=== PATIENT | female | born 1955 | race African-American/Black ===

== ENCOUNTER 2016-08-12 16:38 | Emergency (ER) | payer OTHER ==
[~2016-08-12 16:38] MED LIST: ENAL10TA7 PO; HYDR12.56 PO; SIMV10TA PO
[2016-08-12 16:42] VITALS: BP 133/72; PULSE 94; RESP 12; TEMP 98.8; O2SAT 96
[2016-08-12] MEDS ORDERED: TETANUS/DIPHTHERIA TOXOID ADULT 0.5 ML VIAL IM ONE (17:45)
--- NOTE | 2016-08-12 17:48 | PD ---
HPI Chief Complaint: Laceration/Skin Injury Time Seen by Provider: 17:43 Travel History International Travel<30 days: No Contact w/Intl Traveler<30days: No Traveled to known affect area: No History of Present Illness HPI Patient comes in for evaluation of a left index finger laceration occurred shortly prior to arrival. Patient states she was cutting up potatoes to make hash when she accidentally cut Her Left Index Finger by the Nail and Was Concerned about the Bleeding. Patient Denies Being on Any Blood Thinners or Pain with This. Patient States She Washed It, Put on Neosporin, and Applied a Band-Aid. She states her tetanus shot is not up-to-date. [facility] Past Medical History Cerebral Palsy: Yes Diminished Hearing: No Hypertension: Yes Past Surgical History Other Surgery: Yes (myeloectomy/ right breast surgery) Social History Alcohol Use: Yes (occassionally ) Tobacco Use: No Substance Use: No Allergies-Medications (Allergen,Severity, Reaction): Coded Allergies: No Known Allergies (Verified , 08/12/16) Reported Meds & Prescriptions Reported Meds & Active Scripts Active Review of Systems Except as stated in HPI: all other systems reviewed are Neg Physical Exam Narrative GENERAL: Well-developed, well nourished, in no acute distress, and non-ill appearing. SKIN: Warm and dry. Small (less than half a centimeter) superficial nonrepairable laceration noted on the lateral aspect of the right index finger next to the nail without involvement of the nailbed. There is no foreign body. It is not actively bleeding. It is nontender and afebrile. HEAD: Atraumatic. Normocephalic. EYES: Pupils equal and round. EOMI. No scleral icterus. No injection or drainage. ENT: No nasal bleeding or discharge. Mucous membranes pink and moist. NECK: Trachea midline. Supple. No nuclear rigidity. CARDIOVASCULAR: Capillary refill less than 2 seconds. RESPIRATORY: No accessory muscle use. No respiratory distress. MUSCULOSKELETAL: No obvious deformities. No clubbing. No cyanosis. No edema. Full range of motion. NEUROLOGICAL: Awake and alert. No obvious cranial nerve deficits. Motor grossly within normal limits. Normal speech. PSYCHIATRIC: Appropriate mood and affect; insight and judgment normal. Data Data Last Documented VS Vital Signs Date Time Temp Pulse Resp B/P Pulse Ox O2 Delivery O2 Flow Rate FiO2 08/12/16 16:42 98.8 94 12 133/72 96 Room Air Orders Wound Care (08/12/16 17:40) Tetanus/Diphtheria Tox Adult (Tetanus/Di (08/12/16 17:45) MDM Medical Decision Making Medical Screen Exam Complete: Yes Emergency Medical Condition: Yes Differential Diagnosis Laceration, abrasion, contusion, other Narrative Course The wound is very superficial and nonrepairable. There was no sign of infection at this time. There was no evidence to suggest foreign bodies. Visual and tactile exams were unremarkable. There was no evidence of neurovascular injury as well. The patients wounds were cleaned and dressed. The patient was given signs and symptom warnings for infection, such as increasing pain, redness, swelling, associated heat, pus or fever. The patient was given instructions for timely follow up. The patient agreed with plan of care. Patient in no obvious distress upon re-evaluation. Any questions/concerns in reference to patient diagnosis/condition discussed and clarified prior to patient's discharge. Reinforced sheer importance of close follow up with patient 's primary physician or primary care clinic. Instructed patient to return to ED immediately, if symptoms return/worsen. Pt showed understanding of above instructions. Further instructions and recommendations were detailed in discharge paperwork. Pt ambulated without difficulty out of ED at discharge. Diagnosis Primary Impression: Finger laceration Qualified Code: S61.219A - Finger laceration, initial encounter Patient Instructions: Finger Laceration (ED), General Instructions Additional Instructions: Follow-up with your primary care physician this week for reevaluation. Keep wound dry and clean as possible using soap and water. Use Neosporin to promote healing. Return to the emergency department if symptoms get worse. Disposition: 01 DISCHARGE HOME Condition: Stable Igor Cantu Aug 12, 2016 17:48
== END 2016-08-12 18:11 | disposition home or self-care (01) ==
LOC: NEPB 16:38
DX: S61.211A Laceration without foreign body of left index finger without damage to nail, initial encounter (principal); W45.8XXA Other foreign body or object entering through skin, initial encounter; Y93.G1 Activity, food preparation and clean up; Z23 Encounter for immunization
CPT/HCPCS: 90471; 90714

== ENCOUNTER 2017-02-13 01:03 | Observation (INO) | payer OTHER ==
[2017-02-13 01:11] VITALS: BP 169/76; PULSE 76; RESP 16; TEMP 98.4; O2SAT 99
[2017-02-13 02:13] VITALS: BP 166/80; PULSE 83; RESP 16; O2SAT 96
[2017-02-13] MEDS ORDERED: NITROGLYCERIN 2% OINT 1 GM PACKET TOPICAL ONE (02:15)
[2017-02-13] MEDS ORDERED: SODIUM CHLORIDE 0.9% FLUSH 10 ML FLUSH IVF PRN (02:15)
[2017-02-13] MEDS ORDERED: OMEP20CA2 (02:17)
[2017-02-13] MEDS ORDERED: SIMV20TA PO (02:17)
[2017-02-13] MEDS ORDERED: ENAL20TA PO (02:17)
[2017-02-13] MEDS ORDERED: AMLO5TAB2 PO (02:17)
--- NOTE | 2017-02-13 02:30 | RADRPT ---
EXAM DATE/TIME: 02/13/2017 02:20 [facility] COMPARISON: No previous studies available for comparison. INDICATIONS : Chest pain. MEDICAL HISTORY : None. SURGICAL HISTORY : Mastectomy, right. ENCOUNTER: Initial ACUITY: 1 day PAIN SCORE: 2/10 LOCATION: Bilateral upper chest posterior to anterior FINDINGS: A single view of the chest demonstrates the lungs to be symmetrically aerated without evidence of mas s, infiltrate or effusion. The cardiomediastinal contours are unremarkable. Osseous structures are intact. CONCLUSION: No acute disease. Migue Garzon MD on February 13, 2017 at 2:28 Board Certified Radiologist. This report was verified electronically.
[2017-02-13 03:12] LABS: AUTOMATED NEUTROPHIL # 3.5 TH/MM3 (1.8-7.7); BASOPHIL # 0.1 TH/MM3 (0-0.2); BASOPHIL % 1.1 % (0.0-2.0); EOSINOPHIL # 0.1 TH/MM3 (0-0.4); EOSINOPHIL % 2.2 % (0.0-4.0); HEMATOCRIT 37.8 % (35.0-46.0); HEMO FLAGS DIFF FINAL; LYMPH % 31.6 % (9.0-44.0); MEAN CELL VOLUME 80.4 FL (80.0-100.0); MEAN CORPUSCULAR HEMOGLOBIN 27.7 PG (27.0-34.0); MEAN CORPUSCULAR HGB CONC 34.4 % (32.0-36.0); MONO % 10.6 % (0.0-8.0); NEUT % 54.5 % (16.0-70.0); PLATELET COUNT 232 TH/MM3 (150-450); RED BLOOD COUNT 4.69 MIL/MM3 (4.00-5.30); RED CELL DISTRIBUTION WIDTH 14.6 % (11.6-17.2); WHITE BLOOD COUNT 6.4 TH/MM3 (4.0-11.0)
[2017-02-13 03:31] LABS: ALT (GPT) 21 U/L (10-53); ANION GAP 7 MEQ/L (5-15); AST (GOT) 12 U/L (15-37); BICARBONATE 26.7 MEQ/L (21.0-32.0); BLOOD UREA NITROGEN 20 MG/DL (7-18); CHLORIDE 106 MEQ/L (98-107); GLOMERULAR FILTRATION RATE 49 ML/MIN (>89); SODIUM (NA) 140 MEQ/L (136-145)
[2017-02-13 03:35] LABS: ALKALINE PHOSPHATASE 126 U/L (45-117); TOTAL BILIRUBIN ADULT 0.4 MG/DL (0.2-1.0)
[2017-02-13] MEDS ORDERED: IOHEXOL 350 MG/ML 10 ML VIAL (for RAD DIAG) IV ONE (04:25)
--- NOTE | 2017-02-13 04:46 | RADRPT ---
EXAM DATE/TIME: 02/13/2017 04:07 [facility] COMPARISON: CHEST SINGLE AP, February 13, 2017, 2:20. INDICATIONS : Chest pain that radiates to upper back. IV CONTRAST: 100 cc Omnipaque 350 (iohexol) IV RADIATION DOSE: 10.74 CTDIvol (mGy) MEDICAL HISTORY : Hypertension. Cerebal palsy. SURGICAL HISTORY : None. ENCOUNTER: Initial ACUITY: 1 day PAIN SCALE: 5/10 LOCATION: Bilateral chest TECHNIQUE: Volumetric scanning was performed using a multi-row detector CT scanner. The data was post processed with a variety of visualization algorithms including full volume maximum intensity projection, multi -planar sliding thin slab reformation, curved planar reformation, and surface rendering techniques. Using automated exposure control and adjustment of the mA and/or kV according to patient size, radiat ion dose was kept as low as reasonably achievable to obtain optimal diagnostic quality images. DICOM format image data is available electronically for review and comparison. FINDINGS: There is a tiny nodule in the left lower lobe superiorly measuring 2.5 mm on image 38. A small air cy st in the left upper lobe is present as well as the right upper lobe measuring up to 1.8 cm. No evide nce of pneumonia. There is no aneurysm. No evidence for aortic dissection. Urinary bladder, uterus, o varies, kidneys, spleen, pancreas, liver, gallbladder, adrenal glands are unremarkable. There is a sm all hiatal hernia. Appendix normal. No adenopathy or aneurysm. CONCLUSION: 1. No evidence for aortic dissection. Migue Garzon MD on February 13, 2017 at 4:42 Board Certified Radiologist. This report was verified electronically.
[2017-02-13] MEDS ORDERED: SODIUM CHLOR 0.9% 1000 ML INJ 1,000 ML IV SCH (05:00)
[2017-02-13] MEDS ORDERED: SODIUM CHLORIDE 0.9% FLUSH 10 ML FLUSH IV FLUSH PRN (05:00)
[2017-02-13] MEDS ORDERED: ASPIRIN 81 MG CHEW TAB CHEW ONE (05:00)
[2017-02-13 05:15] VITALS: BP 152/79; PULSE 78; RESP 18; O2SAT 100
[2017-02-13 05:16] VITALS: O2SAT 99
--- NOTE | 2017-02-13 06:00 | PD ---
HPI Chief Complaint: Pain: Acute or Chronic Time Seen by Provider: 02:01 Travel History International Travel<30 days: No Contact w/Intl Traveler<30days: No Traveled to known affect area: No History of Present Illness HPI This is a 61-year-old female who has a history of hypertension and hyperlipidemia who presents to the emergency department with chest discomfort that started one hour ago. She describes the pain as a stabbing pain between her shoulder blades that radiates up to her chest, constant, moderate severity. She denies any associated shortness of breath, diaphoresis or nausea. She's had this chest pain in the past. She says she told her refrigeration specialist Dr. Dunaway about it and he said if it ever happened again she should come to the emergency department. [facility] Past Medical History Cerebral Palsy: Yes Diminished Hearing: No Hypertension: Yes Past Surgical History Other Surgery: Yes (myeloectomy/ right breast surgery) Social History Alcohol Use: Yes (occassionally ) Tobacco Use: No Substance Use: No Allergies-Medications (Allergen,Severity, Reaction): Coded Allergies: No Known Allergies (Verified , 08/12/16) Reported Meds & Prescriptions Reported Meds & Active Scripts Active Reported Omeprazole 20 Mg Cap Amlodipine (Amlodipine Besylate) 5 Mg Tab 5 Mg PO DAILY Simvastatin 20 Mg Tab 20 Mg PO DAILY Enalapril (Enalapril Maleate) 20 Mg Tab 20 Mg PO DAILY Review of Systems Except as stated in HPI: all other systems reviewed are Neg Physical Exam Narrative GENERAL:Well appearing, no acute distress SKIN: Focused skin assessment warm and dry. HEAD: Atraumatic. Normocephalic. EYES: Pupils equal and round. No injection or drainage. ENT: Moist mucous membranes NECK: Trachea midline. CARDIOVASCULAR: Regular rate and rhythm. No murmur appreciated. RESPIRATORY: Clear to auscultation. Breath sounds equal bilaterally. GASTROINTESTINAL: Abdomen soft, non-tender, nondistended. MUSCULOSKELETAL: No obvious deformities. NEUROLOGICAL: Awake and alert. No obvious cranial nerve deficits. Moving all extremities. PSYCHIATRIC: Appropriate mood and affect; insight and judgment normal. Data Data Last Documented VS Vital Signs Date Time Temp Pulse Resp B/P Pulse Ox O2 Delivery O2 Flow Rate FiO2 02/13/17 02:13 83 16 166/80 96 02/13/17 01:11 98.4 Room Air Orders Electrocardiogram (02/13/17 02:07) Complete Blood Count With Diff (02/13/17 02:07) Comprehensive Metabolic Panel (02/13/17 02:07) Troponin I (02/13/17 02:07) Chest, Single Ap (02/13/17 02:07) Ecg Monitoring (02/13/17 02:07) Bilateral Bp Monitoring (02/13/17 02:07) Iv Access Insert/Monitor (02/13/17 02:07) Oximetry (02/13/17 02:07) Oxygen Administration (02/13/17 02:07) Sodium Chloride 0.9% Flush (Ns Flush) (02/13/17 02:15) Cta Thor Abd Aorta W Iv C W3d (02/13/17 02:07) Nitroglycerin 2% Oint (Nitroglycerin 2% (02/13/17 02:15) Iohexol 350 Inj (Omnipaque 350 Inj) (02/13/17 04:25) Sodium Chlor 0.9% 1000 Ml Inj (Ns 1000 M (02/13/17 05:00) Activity Bed Rest With Brp (02/13/17 04:55) Vital Signs (Adult) Q4H (02/13/17 04:55) Cardiac Rhythm .As Directed (02/13/17 04:55) Notify Dr: Other .PRN (02/13/17 04:55) Notify Parameters (02/13/17 04:55) Resp Oxygen Nasal Cannula (02/13/17 ) Troponin I (02/13/17 04:55) Troponin I (02/13/17 07:55) Electrocardiogram (02/13/17 04:55) Electrocardiogram (02/13/17 07:55) ^ Obtain (02/13/17 04:55) Sodium Chloride 0.9% Flush (Ns Flush) (02/13/17 05:00) Sodium Chloride 0.9% Flush (Ns Flush) (02/13/17 09:00) Telecom Sales Consultant / Telemetry [email or web address] (02/13/17 04:55) Aspirin Chew (Aspirin Chew) (02/13/17 05:00) Admit Order (Ed Use Only) (02/13/17 04:55) Labs Laboratory Tests Test 02/13/17 02:12 White Blood Count 6.4 TH/MM3 Red Blood Count 4.69 MIL/MM3 Hemoglobin 13.0 GM/DL Hematocrit 37.8 % Mean Corpuscular Volume 80.4 FL Mean Corpuscular Hemoglobin 27.7 PG Mean Corpuscular Hemoglobin 34.4 % Concent Red Cell Distribution Width 14.6 % Platelet Count 232 TH/MM3 Mean Platelet Volume 9.5 FL Neutrophils (%) (Auto) 54.5 % Lymphocytes (%) (Auto) 31.6 % Monocytes (%) (Auto) 10.6 % Eosinophils (%) (Auto) 2.2 % Basophils (%) (Auto) 1.1 % Neutrophils # (Auto) 3.5 TH/MM3 Lymphocytes # (Auto) 2.0 TH/MM3 Monocytes # (Auto) 0.7 TH/MM3 Eosinophils # (Auto) 0.1 TH/MM3 Basophils # (Auto) 0.1 TH/MM3 CBC Comment DIFF FINAL Differential Comment Sodium Level 140 MEQ/L Potassium Level 4.0 MEQ/L Chloride Level 106 MEQ/L Carbon Dioxide Level 26.7 MEQ/L Anion Gap 7 MEQ/L Blood Urea Nitrogen 20 MG/DL Creatinine 1.33 MG/DL Estimat Glomerular Filtration 49 ML/MIN Rate Random Glucose 92 MG/DL Calcium Level 8.8 MG/DL Total Bilirubin 0.4 MG/DL Aspartate Amino Transf 12 U/L (AST/SGOT) Alanine Aminotransferase 21 U/L (ALT/SGPT) Alkaline Phosphatase 126 U/L Troponin I LESS THAN 0.02 NG/ML Total Protein 7.9 GM/DL Albumin 4.1 GM/DL MDM Medical Decision Making Medical Screen Exam Complete: Yes Emergency Medical Condition: Yes Interpretation(s) EKG: Normal sinus rhythm with no ST changes No leukocytosis Mild renal insufficiency Troponin is normal Chest x-rays reassuring Last 24 hours Impressions Chest X-Ray 02/13/17206 Signed Impressions: Service Date/Time: Monday, February 13, 2017 02:20 - CONCLUSION: No acute disease. Migue Garzon MD Aorta CTA 02/13/17206 Signed Impressions: Service Date/Time: Monday, February 13, 2017 04:07 - CONCLUSION: 1. No evidence for aortic dissection. Migue Garzon MD Differential Diagnosis Acute coronary syndrome, pneumonia, aortic dissection, musculoskeletal back pain Narrative Course This is a 61-year-old female who presents to the emergency department reporting pain in her chest that comes from her back. It's subsided when she arrived in the emergency department. She was placed on a monitor and an IV was established. Labs are obtained which are reassuring. She is quite hypertensive in the 180s systolic when she arrived in given the description of her symptoms with pain in her back I obtained a CTA which was negative for aortic dissection. She will be admitted to the chest pain center for serial cardiac enzymes and cardiology evaluation. Diagnosis Primary Impression: Chest pain Qualified Code: R07.9 - Chest pain, unspecified type Admitting Information Admitting Physician Requests: Chana Mallory MD Feb 13, 2017 06:00
[2017-02-13 07:48] VITALS: BP 129/72; PULSE 72; RESP 15; TEMP 98; O2SAT 95
[2017-02-13] MEDS ORDERED: SODIUM CHLORIDE 0.9% FLUSH 10 ML FLUSH IV FLUSH SCH (09:00)
[2017-02-13] MEDS ORDERED: PRAVASTATIN SOD 40 MG TAB PO SCH (09:30)
[2017-02-13] MEDS ORDERED: amLODIPine BESYLATE 5 MG TAB PO SCH (09:30)
[2017-02-13] MEDS ORDERED: ENALAPRIL MALEATE 10 MG TAB PO SCH (09:30)
--- NOTE | 2017-02-13 09:34 | HHI.HP ---
[facility] Primary Care Physician Marc Camara MD Chief Complaint Chest pain History of Present Illness This is a 61-year-old female that presents to the ED via private vehicle complaining of developing a chest discomfort about 1:00 this morning. She was just about to fall asleep when it occurred. He was in her upper back and radiated around to the center of her chest. It lasted 3 or 4 minutes. There are no associated symptoms. She states she had a similar episode about a year ago but it lasted longer. Last about 10-15 minutes. She saw her accounts payable clerk for a regular checkup afterwards and was told to call 911 if it ever happening again. She denies history of heart disease. States that she has had stress test with Dr. Dunaway in the past. She states she's had nuclear stress test as well as the most recent stress test being a treadmill in July. She states they have always been normal. Currently denies any discomfort. Denies recent travel. Denies recent illness. Review of Systems General: Patient denies fevers, chills recent, and recent travel HEENT: Patient denies headache, sore throat, difficulty swallowing. Cardiovascular: Has the chest discomfort as mentioned above. Denies sensation of heart beating rapidly or irregularly. No syncope. Denies diaphoresis. Respiratory: Denies shortness of breath or inspirational chest discomfort. Denies coughing wheezing or hemoptysis. GI: Patient denies nausea, vomiting, diarrhea, abdominal pain, bloody stools. Musculoskeletal: Patient denies joint pain or edema. Denies calf pain or edema. Neurovascular: Patient denies numbness, tingling, weakness in extremities. Denies headache. Endocrine: Denies polyuria and polydipsia. Hematologic: Denies easy bruising. Skin: Denies rash or itching. Past Family Social History Allergies: Coded Allergies: No Known Allergies (Verified , 08/12/16) Past Medical History Hypertension and hyperlipidemia. Denies diabetes and known CAD. Past Surgical History Noncontributory. Reported Medications Reported Meds & Active Scripts Active Reported Omeprazole 20 Mg Cap Amlodipine (Amlodipine Besylate) 5 Mg Tab 5 Mg PO DAILY Simvastatin 20 Mg Tab 20 Mg PO DAILY Enalapril (Enalapril Maleate) 20 Mg Tab 20 Mg PO DAILY Active Ordered Medications Current Medications Medications (Trade) Dose Ordered Sig/Lloyd Route Start Time Stop Time Status Last Admin (NS Flush) 2 ml UNSCH PRN IVF 02/13/17 02:15 (NS Flush) 2 ml UNSCH PRN IV FLUSH 02/13/17 05:00 (NS Flush) 2 ml BID IV FLUSH 02/13/17 09:00 02/13/17 08:13 (Norvasc) 5 mg DAILY PO 02/13/17 09:30 UNV (Vasotec) 20 mg DAILY PO 02/13/17 09:30 UNV Non-Formulary Medication 20 mg DAILY PO 02/13/17 09:30 UNV Family History Denies family history of CAD. Social History Patient is a nonsmoker. Has occasional alcohol. Denies illicit drugs. She is a retired teacher. Physical Exam Vital Signs Vital Signs Date Time Temp Pulse Resp B/P Pulse Ox O2 Delivery O2 Flow Rate FiO2 02/13/17 07:48 98.0 72 15 129/72 95 02/13/17 05:16 99 02/13/17 05:15 78 18 152/79 100 02/13/17 02:13 83 16 166/80 96 02/13/17 02:13 83 18 02/13/17 01:11 98.4 76 16 169/76 99 Room Air Physical Exam GENERAL: This is a well-nourished, well-developed patient, in no apparent distress. Patient speaks in clear complete sentences. Patient is pleasant. HEENT: Head is atraumatic and normocephalic. Neck is supple without lymphadenopathy and trachea is midline. No JVD or carotid bruits. CARDIOVASCULAR: Regular rate and rhythm without murmurs, gallops, or rubs. RESPIRATORY: Clear to auscultation. Breath sounds equal bilaterally. No wheezes , rales, or rhonchi. Chest wall is nontender. No use of accessory muscles. GASTROINTESTINAL: Abdomen is nontender, nondistended. Abdomen soft. No obvious pulsatile mass or bruit. No CVA tenderness. Strong femoral pulses bilaterally. Normal bowel sounds in all quadrants. MUSCULOSKELETAL: Patient is moving upper and lower extremities freely. No calf tenderness or edema, no Homans sign. Strong pulses in upper and lower extremities. NEUROLOGICAL: Patient is alert and oriented. Cranial nerves 2-12 are grossly intact. No focal deficits and speech is clear. SKIN: No rash and turgor is normal. Laboratory Laboratory Tests Test 02/13/17 02/13/17 02/13/17 02:12 05:14 08:10 White Blood Count 6.4 Red Blood Count 4.69 Hemoglobin 13.0 Hematocrit 37.8 Mean Corpuscular Volume 80.4 Mean Corpuscular Hemoglobin 27.7 Mean Corpuscular Hemoglobin 34.4 Concent Red Cell Distribution Width 14.6 Platelet Count 232 Mean Platelet Volume 9.5 Neutrophils (%) (Auto) 54.5 Lymphocytes (%) (Auto) 31.6 Monocytes (%) (Auto) 10.6 Eosinophils (%) (Auto) 2.2 Basophils (%) (Auto) 1.1 Neutrophils # (Auto) 3.5 Lymphocytes # (Auto) 2.0 Monocytes # (Auto) 0.7 Eosinophils # (Auto) 0.1 Basophils # (Auto) 0.1 CBC Comment DIFF FINAL Differential Comment Sodium Level 140 Potassium Level 4.0 Chloride Level 106 Carbon Dioxide Level 26.7 Anion Gap 7 Blood Urea Nitrogen 20 Creatinine 1.33 Estimat Glomerular Filtration 49 Rate Random Glucose 92 Calcium Level 8.8 Total Bilirubin 0.4 Aspartate Amino Transf 12 (AST/SGOT) Alanine Aminotransferase 21 (ALT/SGPT) Alkaline Phosphatase 126 Troponin I LESS THAN 0.02 LESS THAN 0.02 LESS THAN 0.02 Total Protein 7.9 Albumin 4.1 Result Diagram: 02/13/1721102/13/17211 Imaging Last 48 hours Impressions Chest X-Ray 02/13/17206 Signed Impressions: Service Date/Time: Monday, February 13, 2017 02:20 - CONCLUSION: No acute disease. Migue Garzon MD Aorta CTA 02/13/17206 Signed Impressions: Service Date/Time: Monday, February 13, 2017 04:07 - CONCLUSION: 1. No evidence for aortic dissection. Migue Garzon MD Course EKGs have sinus rhythm without significant ST segment depressions or elevations. Assessment and Plan Assessment and Plan * Atypical chest pain: Patient has had serial cardiac enzymes and EKGs for ruling out purposes. She has been seen by Dr. Lito Cornejo of cardiology in the chest pain center. Also discussed the patient with her accounts payable clerk Dr. Dunaway is recommended that she can be discharged home and follow-up with him on Thursday. Return to ED or down 911 if chest pain recurs. * Hypertension: Continue current medication. * Hyperlipidemia: Continue current medication. * GERD: Continue current medication. * Lung nodule: This was seen on a CT scan while in the ED. She will need to follow this with her primary care physician. A copy of the report will be provided. Tai [place] Feb 13, 2017 09:34
--- NOTE | 2017-02-13 09:36 | HHI.DCPOC ---
Discharge Care Plan Diagnosis: (1) Chest pain (2) Hypertension (3) Hyperlipidemia (4) GERD (gastroesophageal reflux disease) (5) Lung nodule Goals to Promote Your Health Discuss lung nodule seen on CT scan with your primary care physician. * To prevent worsening of your condition and complications * To maintain your health at the optimal level Directions to Meet Your Goals Take your medications as prescribed Follow your dietary instruction Follow activity as directed Keep your appointments as scheduled Take your immunizations and boosters as scheduled If your symptoms worsen call your PCP, if no PCP go to Urgent Care Center or Emergency Room Smoking is Dangerous to Your Health. Avoid second hand smoke Call the 24-hour hour crisis hotline for domestic abuse at Tai [place] Feb 13, 2017 09:36
[2017-02-13 10:06] VITALS: PULSE 74
--- NOTE | 2017-02-13 15:35 | EKG ---
Date Performed: 02/13/2017 Time Performed: 01:57:32 PTAGE: 61 years EKG: Sinus rhythm BORDERLINE LEFT AXIS DEVIATION BORDERLINE ECG PREVIOUS TRACING : 12/25/2005 10.54 Since previous tracing, no significant change noted DOCTOR: Lito Cornejo Interpretating Date/Time 02/13/2017 15:35:24
--- NOTE | 2017-02-13 15:35 | EKG ---
Date Performed: 02/13/2017 Time Performed: 05:09:59 PTAGE: 61 years EKG: Sinus rhythm BORDERLINE LEFT AXIS DEVIATION BORDERLINE ECG PREVIOUS TRACING : 02/13/2017 01.57 Since previous tracing, no significant change noted DOCTOR: Lito Cornejo Interpretating Date/Time 02/13/2017 15:35:03
--- NOTE | 2017-02-13 15:35 | EKG ---
Date Performed: 02/13/2017 Time Performed: 08:15:37 PTAGE: 61 years EKG: Sinus rhythm BORDERLINE LEFT AXIS DEVIATION BORDERLINE ECG PREVIOUS TRACING : 02/13/2017 05.09 Since previous tracing, no significant change noted DOCTOR: Lito Cornejo Interpretating Date/Time 02/13/2017 15:34:16
== END 2017-02-13 11:45 | disposition home or self-care (01) ==
LOC: NEPC 01:03 → NEDA 04:57 → NEPHCDU 06:15
PROVIDERS: ADMIT Internal Medicine Cardiovascular Disease; ATTEND Internal Medicine Cardiovascular Disease
DX: R07.89 Other chest pain (principal); E78.5 Hyperlipidemia, unspecified; I10 Essential (primary) hypertension; K21.9 Gastro-esophageal reflux disease without esophagitis; R91.1 Solitary pulmonary nodule; R94.31 Abnormal electrocardiogram [ECG] [EKG]
CPT/HCPCS: 71010; 71275; 74174; 80053; 84484; 85025; 93005; 99285; G0378; J7030; Q9967

== ENCOUNTER 2017-03-13 06:17 | Day surgery (SDC) | payer OTHER ==
[~2017-03-13] VITALS: Ht 157.5 cm; Wt 82.6 kg
[~2017-03-13 06:17] MED LIST changes: +AMLO5TAB2 PO; -ENAL10TA7 PO; +ENAL20TA PO; -HYDR12.56 PO; +OMEP20CA2; -SIMV10TA PO; +SIMV20TA PO
[2017-03-13 07:11] VITALS: BP 160/96; PULSE 84; RESP 17; TEMP 98.5; O2SAT 96
[2017-03-13 07:23] LABS: AUTOMATED NEUTROPHIL # 2.9 TH/MM3 (1.8-7.7); BASOPHIL # 0.1 TH/MM3 (0-0.2); EOSINOPHIL # 0.2 TH/MM3 (0-0.4); HEMATOCRIT 38.2 % (35.0-46.0); HEMO FLAGS DIFF FINAL; LYMPH % 27.2 % (9.0-44.0); LYMPHOCYTE # 1.4 TH/MM3 (1.0-4.8); MEAN CELL VOLUME 81.3 FL (80.0-100.0); MEAN CORPUSCULAR HEMOGLOBIN 27.6 PG (27.0-34.0); MONO % 10.8 % (0.0-8.0); PLATELET COUNT 227 TH/MM3 (150-450); RED CELL DISTRIBUTION WIDTH 14.3 % (11.6-17.2)
[2017-03-13 07:31] LABS: APTT (PATIENT) 25.8 SEC (24.3-30.1); INTERNATIONAL NORMALIZED RATIO 1.1 RATIO; PROTHROMBIN TIME - PATIENT 11.7 SEC (9.8-11.6)
[2017-03-13 07:56] LABS: BICARBONATE 24.4 MEQ/L (21.0-32.0); POTASSIUM 3.8 MEQ/L (3.5-5.1)
[2017-03-13] MEDS ORDERED: HEPARIN-NS/PF INJ 500 ML ONE (08:31)
[2017-03-13] MEDS ORDERED: IOHEXOL 350 MG/ML 50 ML BTL (for Cath Lab) OTHER ONE (08:47)
[2017-03-13] MEDS ORDERED: MIDAZOLAM HCL 2 MG/2 ML VIAL ONE (08:47)
--- NOTE | 2017-03-13 09:14 | CATHPROC ---
[facility] HIS Report Study Information Study Number Admission Scheduled Start Study Start [id number] Mar 13 2017 6:17AM 03/13/2017 Mar 13 2017 8:19AM [place] [facility] Cardiac Catheterization Admit Source Facility Department Other [facility] - Warper Tender Physician and Clinical Staff Initial Apollo Metcalf Hosiery Knitter Armando Archer RN Recorder Luis Maddox,RT(R) Scrub Nicoel Hernandez,RT(R) (BS) Procedures Performed Procedure Location (Site) Vessel Name Coronary Angiograms RCA Right Coronary L Heart Cath LV Gram-hand inj. LV LV Ventricle Equipment Time Carpet Winder Description Size Mfg Part Number Used/Scraped TRANSDUCER, TRUWAVE [id number] 08:21 JJ WALKER * Used W/STOCKCOCK *[id number] *[id number] *[id number] 08:21 MEDLINE [employer] PACK, CCL CUSTOM * Used *[id number] 08:21 Rule. PACER PEN, SKIN DUAL W/ RULER * Used *[id number] 08:21 [employer] WIRE, 3MMJ .035 180CM 180CM Used *[id number] 08:21 NAMIC MANIFOLD, 4 PORT * Used *[id number] 08:21 NYCOMED OMNIPAQUE, 350 MG, 150ML 150ML [id number] Used [id number] 08:21 PERALES MEDICAL BLANKET,WARM AIR CCL * Used *[id number] 08:21 TERUMO MEDICAL SHEATH, FR4 TERUMO (10CM) FR 4 Used *[id number] History: Current Medications Medication Dosage/Unit Route Frequency Last Date/Time Taken Statins (any) Prilosec History: Allergies Allergy Reaction No Known Allergies History: Risk Factors Family History of Hypertension Dyslipidemia Previous ME Previous Heart Failure Premature CAD Yes Yes Yes No No Prior Valve Prior PCI Prior CABG Surgery No No No Cerebrovascular Peripheral Artery Chronic Lung On Dialysis Diabetes Disease Disease Disease No No No No No History: Symptoms/Diagnosis Selection Items Chest pain History: Stress Tests Stress or Imaging Studies Performed Yes Standard Exercise Stress Test No Stress Echo No Stress Test SPECT No Stress Test CMR No Cardiac CTA Coronary Calcium Score No No History: Other Disease Selection Items HTN History: Other Current Smoker No Labs Hgb (g/dl) Hct (%) RBC (MIL/MM3) WBC (l/cumm) Platelets (thousands) 11.60-17.00 35.00-51.00 4.00-5.90 4.00-11.00 150.00-450.00 13.0 38.2 4.7 5 227 Glucose (mg/dl) BUN (mg/dl) Creatinine (mg/dl) BUN:Creatinine (1:x) 74.00-106.00 7.00-18.00 0.50-1.30 10.00-20.00 104 17 1.3 13.1 Na (meq/l) K (meq/l) Cl (meq/l) CO2 (mmol/L) Ca (mg/dl) 136.00-145.00 3.50-5.10 98.00-107.00 21.00-32.00 8.50-10.10 143 3.8 110 24.4 8.6 PT (sec) PTT (sec) INR (PTT:PT) 9.80-11.60 24.30-30.10 0.90-1.10 11.7 25.8 1.1 CPK-MB (ng/ML) 0.50-3.60 Not Drawn Medication Medication Total Dose (Bolus/Oral) Medication Total Dosage/Unit 1% XYLOCAINE 20 mL VERSED 1 mg Medications (Bolus/Oral) Medication Time Given Dosage/Unit Administered By Reason 1% XYLOCAINE 03/13/2017 8:47:35 AM 20 mL Apollo Dunaway 20 mL 1% XYLOCAINE given in lab by Apollo Dunaway in Right Groin via Subcutaneous. VERSED 03/13/2017 8:47:45 AM 1 mg Armando Archer 1 mg VERSED given in lab by Armando Archer RN in Right Hand via Peripheral IV. Medication (Drip) Medication Time Given Dosage/Unit Concentration/Unit Diluent (ml) Solution IV Solutions 03/13/2017 8:29:58 AM 0 mL (IV) 500 NaCl .9 IV Solutions given in lab by Armando Archer RN in Right Hand via Peripheral IV. Pump/Drip Flow = 20 m l/hr using NaCl .9. Initial Case Assessment Cardiovascular HR Rhythm NIBP Chest Pain 96 Sinus 178/94 0 Edema Present Skin color Skin None Normal Warm Dry Circulatory - Right Pulses Dorsalis Pedis Femoral 1 1 Scale (0,1,2,3,4,d) Circulatory - Left Pulses Dorsalis Pedis Femoral 1 1 Scale (0,1,2,3,4,d) Neurological State Oriented to time-place- Alert Moves all extremities person Respiration - General Respiration Rate SpO2 (%) O2 (lpm) (B/min) 17 99 0 Final Case Assessment Cardiovascular HR Rhythm NIBP Chest Pain 75 Sinus 138/82 0 Edema Present Skin color Skin None Normal Warm Dry Circulatory - Right Pulses Dorsalis Pedis Femoral 1 1 Scale (0,1,2,3,4,d) Circulatory - Left Pulses Dorsalis Pedis Femoral 1 1 Scale (0,1,2,3,4,d) Neurological State Oriented to time-place- Alert Moves all extremities person Respiration - General Respiration Rate SpO2 (%) O2 (lpm) (B/min) 16 99 0 Chronological Log Time Study Chronological Log 8:24:49 Patient arrived via Bed. 8:24:50 Patient Name, D.O.B, / Armband Verified By R.N. 8:24:51 Consent signed by the physician and the patient and verified by the Warper Tender staff. 8:24:51 Pre-op and post- op instructions given; patient acknowledges understanding of instructions. 8:24:52 Verbal Stimulation=2 Physical Stimulation=2 Airway=2 Respiration=2 TOTAL=8. (0=absent, 1=li mited, 2=present) 8:25:06 Presedation assessment performed by Warper Tender RN. 8:25:09 Patient has been NPO for More than 6Hrs. 8:25:10 Skin Breakdown-none per patient. 8:25:32 Patient Warmer Placed on the Table. 8:25:35 James Prominences Protected 8:29:24 A # 20 IV was noted in the Hand (right). Grade = 0 IV Solutions given in lab by Armando Archer, GURPREET in Right Hand via Peripheral IV. Pump/Drip Flow = 20 ml/hr using NaCl 8:29:58 .9. 8:30:21 History and physical on the chart or being dictated. Assessment: Initial Case, HR=96 BPM, Rhythm=Sinus, FZDH=386/94 mmhg, Chest Pain=0, Edema=None, Color=Normal, Skin = Warm, Dry Right Pulses: Abraham Ped=1, Femoral=1 8:30:25 Left Pulses: Abraham Ped=1, Femoral=1 Neurological: State=Alert, Ox3, BRAXTON Respiration: Resp=17 B/min, SpO2=99 %, O2=0 lpm Vitals capture started with the following parameters, Patient=Adult, Interval=5 min, Initial Pre qvfga=396 mmHg, 8:30:38 Deflation Rate=5 mmHg, Cuff placed on Right Arm 8:31:50 CA=712 bpm, TTGC=440/94 mmhg, PzL2=056.0 %, Resp=4 B/min, Pain=0, Marjorie=10, Castellanos=2 8:35:30 MD arrived. 8:35:58 Reference ECG taken 8:36:18 BI=287 bpm, OVRK=038/85 mmhg, LeV5=770.0 %, Resp=16 B/min, Pain=0, Marjorie=10, Castellanos=2 8:38:17 Bilateral groins prepped with 2% chlorhexidine, and with a 3 min. waiting time. 8:41:19 NM=876 bpm, ISDY=632/93 mmhg, BlD4=616.0 %, Resp=25 B/min, Pain=0, Marjorie=10, Castellanos=2 8:44:20 Pressure channel 1 zeroed. 8:46:20 KU=049 bpm, WIVR=310/90 mmhg, RyU4=297.0 %, Resp=18 B/min, Pain=0, Marjorie=10, Castellanos=2 Time Out. Correct patient, correct procedure,correct physician, power injector not loaded with c ontrast with surgical 8:46:51 team present. Time Out Concurred by MD, individual staff in procedure 8:47:29 Case Start 8:47:35 20 mL 1% XYLOCAINE given in lab by Apollo Dunaway in Right Groin via Subcutaneous. 8:47:45 1 mg VERSED given in lab by Armando Archer, RN in Right Hand via Peripheral IV. 8:49:25 Access site was Right Femoral Artery. 8:49:42 A SHEATH, FR4 TERUMO (10CM) FR 4 was advanced into the Fem Art (right) using the Percutaneou s technique. A JR 4.0 INFINITI CATHETER FR 4 was advanced over a wire. OMNIPAQUE, 350 MG, 150ML 150ML was use d for 8:50:18 injections. Recorded Pressure: LV, HR=84, Condition=Condition 1 8:51:04 (Left Ventricle) LV 161/5/18 8:51:09 The LV was manually injected with 8 cc's and visualized. OMNIPAQUE, 350 MG, 150ML 150ML used . Recorded Pressure: LV, Ao, HR=92, Condition=Condition 1 8:51:13 (Left Ventricle) LV 166/6/10, (Aorta) Ao 152/79/112 8:51:25 HR=82 bpm, MTOI=680/74 mmhg, AeZ9=956.0 %, Resp=20 B/min, Pain=0, Marjorie=10, Castellanos=2 Recorded Pressure: Ao, HR=82, Condition=Condition 1 8:51:27 (Aorta) Ao 150/73/106 8:51:59 The RCA was injected and visualized at various angles. OMNIPAQUE, 350 MG, 150ML 150ML used. 8:52:26 Catheter was removed A JL 4.0 INFINITI CATHETER FR 4 was advanced over a wire. OMNIPAQUE, 350 MG, 150ML 150ML was use d for 8:52:46 injections. 8:54:37 Catheter was removed 8:54:41 Case End 8:57:01 HR=72 bpm, HAHX=475/72 mmhg, XyM7=965.0 %, Resp=13 B/min, Pain=0, Marjorie=10, Castellanos=2 8:58:11 Sheath removed; pressure applied to access site. Assessment: Final Case, HR=75 BPM, Rhythm=Sinus, TUCN=397/82 mmhg, Chest Pain=0, Edema=None, Color=Normal, Skin = Warm, Dry Right Pulses: Abraham Ped=1, Femoral=1 9:00:37 Left Pulses: Abraham Ped=1, Femoral=1 Neurological: State=Alert, Ox3, BRAXTON Respiration: Resp=16 B/min, SpO2=99 %, O2=0 lpm 9:01:17 HR=70 bpm, AMUY=308/82 mmhg, SpO2=99.0 %, Resp=18 B/min, Pain=0, Marjorie=10, Castellanos=2 9:03:07 No case complications noted. 9:03:09 Cine recording checked. 9:03:12 Bedside Report will be given. 9:03:46 A Left Heart Cath was performed. 9:06:55 HR=75 bpm, SHNB=454/84 mmhg, SpO2=95.0 %, Resp=24 B/min, Pain=0, Marjorie=10, Castellanos=2 9:11:19 HR=70 bpm, TMCC=334/75 mmhg, SpO2=92.0 %, Resp=9 B/min, Pain=0, Marjorie=10, Castellanos=2 9:13:11 Sterile dressing applied to site 9:15:34 Patient moved to stretcher End Study - Contrast Media Used In Study Contrast Total Opened (mL) Total Used (mL) Total Wasted (mL) Omnipaque 150 50 100 End Study - Maximum Contrast Load Max Contrast Load (mL) 317.7 End Study - Radiation Exposure Fluoro Time (minutes) 1.2 End Study - Patient Disposition Complications Transferred To Interventional Outcome No Outpatient Bed No attempt made
[2017-03-13] MEDS ORDERED: MISC INFORMATION XX ONE (09:15)
[2017-03-13] MEDS ORDERED: BACITRACIN OINT 0.9 GM PKT TOP ONE (09:15)
[2017-03-13] MEDS ORDERED: SODIUM CHLORIDE 0.9% FLUSH 10 ML FLUSH PRN (09:15)
--- NOTE | 2017-03-13 16:37 | EKG ---
Date Performed: 03/13/2017 Time Performed: 07:16:02 PTAGE: 62 years EKG: Sinus rhythm . Leftward axis Anteroseptal T wave changes are nonspecific Low QRS voltages in precordial leads Comp ared to previous tracing, no significant change Borderline ECG PREVIOUS TRACING : 02/13/2017 08.15 DOCTOR: Juanjose Gresham Interpretating Date/Time 03/13/2017 16:36:52
[2017-03-13] MEDS ORDERED: SODIUM CHLORIDE 0.9% FLUSH 10 ML FLUSH SCH (21:00)
--- NOTE | 2017-03-15 05:14 | MR ---
cc: CLARK COUGHLIN M.D. DATE: 03/13/2017 PROCEDURE: Left heart catheterization, left coronary artery. INDICATIONS: 1. New-onset cardiac symptom of severe chest pain at rest, unstable angina. 2. [place] [employer], class IV angina. 3. Coronary artery disease, multiple cardiac risk factors and grief reaction. The patient's mother recently . 4. History of hypertension and hyperlipidemia. PROCEDURE PERFORMED: The patient was brought to the Cardiac Catheterization Laboratory, prepped and draped in the usual sterile fashion. 10 cc of 1% lidocaine was used to locally anesthetize the right common femoral artery. A 4 Tongan sheath was successfully placed in the right common femoral artery. 4 Tongan JR4 and JL4 catheters were used to perform left and right coronary angiography and left ventriculography. FINDINGS: LV pressure is 160/5-15. EF is 65%. Right coronary artery is dominant. She has very subtle plaque in the proximal segment, 5 to 10% angiographically. Left main coronary artery has no significant disease angiographically. The left circumflex vessel has no significant disease angiographically. There is a high first obtuse marginal vessel which is a 25 mm vessel which has no obstructive disease. The second obtuse marginal vessel is a small to medium size vessel with ostial bifurcation, the more medial branch is very small, probably 1 millimeter in diameter at most. The second, more lateral branch of this marginal vessel has no significant obstructive disease and is very tortuous. There is a distal small posterolateral artery with no significant obstructive disease. The LAD is transapical, has mild diffuse plaque in the proximal segment up to 10 to 20% angiographically. The first diagonal artery is a medium to large size vessel with a proximal bifurcation. Both branches of the bifurcation approaching the apex have an ostial 30 to 40% stenosis. CONCLUSION 1. Mild to moderate two vessel coronary disease. 2. Normal LV systolic function, ejection fraction 65%. RECOMMENDATIONS Medical management of coronary artery disease, cardiac risk factor modification. MD MARISELA Chambers/RASHAWN /9:02 AM /4:48 AM
== END 2017-03-13 13:21 | disposition home or self-care (01) ==
LOC: HDOC 06:17 → HDIC 06:18 → HDOC 13:21
PROVIDERS: ATTEND Internal Medicine Interventional Cardiology
DX: I25.110 Atherosclerotic heart disease of native coronary artery with unstable angina pectoris (principal); I10 Essential (primary) hypertension; E78.5 Hyperlipidemia, unspecified; Z79.899 Other long term (current) drug therapy
CPT/HCPCS: 80048; 85025; 85610; 85730; 93005; 93458; C1769; C1893; J1644; J2250; J3010; Q9967